=== PATIENT | male | born 1950 | race Caucasian/White ===

== ENCOUNTER 2024-02-24 08:48 | Outpatient (OUT) | payer MEDICARE, SELFPAY ==
--- NOTE | 2024-02-24 09:02 | ECG_ITS ---
[facility] Test Date: 2024-02-24 Pat Name: Alexis Machado Department: Room: - Gender: Male [employer] Commissioner: : 1950 Requested By: LAKEISHA HARDING Order Number: [id number] Reading MD: ALFONZO BIRD Measurements Intervals [place] Rate: 53 P: 33 SD: 182 QRS: -16 QRSD: 105 T: -1 QT: 404 QTc: 380 Interpretive Statements SINUS BRADYCARDIA Non-Specific T wave inversion in III No previous ECG available for comparison Electronically Signed On 02-25-2024 5:23:28 EDT by ALFONZO BIRD
--- NOTE | 2024-02-24 09:42 | P.GSHP_ITS ---
History of Present Illness History of Present Illness Chief complaint: BPH With Obstruction, Hematuria Narrative: Patient presents for preadmission testing. The patient states he has a history of urinary retention, he does urinate on his own, but has incomplete bladder emptying and he is self catheterizing twice a day. He states he does not have any dysuria, hematuria, abdominal pain, nausea, vomiting, fever, or any other complaints. Review of Systems ROS Narrative REVIEW OF SYSTEMS: Negative except as stated in HPI, ten or more systems reviewed. Constitutional: No fever, chills, weakness ENT: No sore throat or epistaxis Cardiovascular: No edema, chest pain, palpitations, or activity intolerance Respiratory: No shortness of breath, cough, or wheezing Musculoskeletal: No joint pain or swelling Gastrointestinal: No abdominal pain, constipation, diarrhea, or vomiting Genitourinary: No dysuria or hematuria Neurological: No numbness, tingling, weakness, or headache Psychiatric: No mood changes PFSH [facility] Medical History (Updated 02/24/24 @ 09:41 by Barbara Quiñonez NP) Self-catheterizes urinary bladder ?Z78.9 - Other specified health status (ICD-10) Leg cramp ?R25.2 - Cramp and spasm (ICD-10) Back pain ?M54.9 - Dorsalgia, unspecified (ICD-10) Arthritis ?M19.90 - Unspecified osteoarthritis, unspecified site (ICD-10) COVID-19 ?U07.1 - COVID-19 (ICD-10) Sleep apnea ?G47.30 - Sleep apnea, unspecified (ICD-10) Seasonal allergies ?J30.2 - Other seasonal allergic rhinitis (ICD-10) Heartburn ?R12 - Heartburn (ICD-10) Hypertension ?I10 - Essential (primary) hypertension (ICD-10) 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 ?S68.119A - Complete traumatic metacarpophalangeal amputation of unspecified finger, initial encounter (ICD-10) Abnormal TRUS (transrectal ultrasound), prostate ?R93.89 - Abnormal findings on diagnostic imaging of other specified body structures (ICD-10) Nocturia ?R35.1 - Nocturia (ICD-10) Elevated PSA ?R97.20 - Elevated prostate specific antigen [PSA] (ICD-10) Urinary retention ?R33.9 - Retention of urine, unspecified (ICD-10) BPH with obstruction/lower urinary tract symptoms ?N40.1 - Benign prostatic hyperplasia with lower urinary tract symptoms (ICD- 10) ?N13.8 - Other obstructive and reflux uropathy (ICD-10) Surgical History (Updated 02/24/24 @ 09:24 by Barbara Quiñonez NP) History of colonoscopy ?Z98.890 - Other specified postprocedural states (ICD-10) History of shoulder replacement ?Z96.619 - Presence of unspecified artificial shoulder joint (ICD-10) History of spinal surgery ?Z98.890 - Other specified postprocedural states (ICD-10) H/O hand surgery ?Z98.890 - Other specified postprocedural states (ICD-10) H/O total ankle replacement ?Z96.669 - Presence of unspecified artificial ankle joint (ICD-10) Family History (Updated 02/24/24 @ 09:24 by Barbara Quiñonez NP) Other Family history of hypertension Family history of stroke Social History (Updated 02/24/24 @ 09:17 by Barbara Quiñonez NP) Within the past year, how often did you have a drink containing alcohol: 4 or more times a week Within the past year, how many standard drinks containing alcohol did you have on a typical day: 1 or 2 Total score: 0 Score interpretation: A score less than 4 is consistent with normal alcohol consumption. Smoking status: Never smoker Non-prescribed substance use: denies use Previous occupational history: Retired -[employer] Highest level of school completed/degree received: high school graduate Meds Home Medications and Allergies Home Medications ?Medication ?Instructions ?Recorded ?Confirmed ?Type albuterol sulfate 90 mcg/actuation 2 inh inhalation Q4H PRN shortness 02/24/24 02/24/24 History aerosol inhaler of breath or wheezing dutasteride 0.5 mg capsule 0.5 mg PO DAILY 02/24/24 02/24/24 History fluticasone propionate 50 2 spray intranasal Q12H 02/24/24 02/24/24 History mcg/actuation nasal spray,suspension nebivolol 5 mg tablet 5 mg PO DAILY 02/24/24 02/24/24 History sulfamethoxazole 800 1 tab PO DAILY 02/24/24 02/24/24 History mg-trimethoprim 160 mg tablet Allergies Allergy/AdvReac Type Severity Reaction Status Date / Time No Known Drug Allergies Allergy Verified 02/24/24 09:14 Exam Narrative Exam Narrative: Constitutional: Awake, alert, comfortable, well-appearing, nontoxic, interactive, vital signs as charted Head: Normocephalic, atraumatic Neck: Supple, normal appearance, normal range of motion, no meningeal signs, no lymphadenopathy Respiratory: No respiratory distress, breath sounds clear Cardiovascular: Regular rate and rhythm, strong and regular heart tones Abdomen: Nontender, normal bowel sounds, soft, no CVA tenderness Musculoskeletal: Normal gait, no swelling or edema Skin: No rashes or induration, no lesions, only visible skin inspected Neuro: No neurological deficits, normal sensation Psychiatric: Oriented ?3, normal affect Assessment and Plan Assessment and Plan (1) Self-catheterizes urinary bladder: (2) Nocturia: (3) Elevated PSA: (4) Urinary retention: (5) BPH with obstruction/lower urinary tract symptoms: Plan Cystoscopy, TURP scheduled with Dr. Murphy March 07, 2024.
[2024-02-24 10:29] LABS: Anion Gap 15.7; BUN Creatinine Ratio 13.3; Calcium 8.8 mg/dL (8.5-10.1); Carbon Dioxide 23.6 mmol/L (21.0-32.0); Chloride 104 mmol/L (98-107); Estimated GFR (African America >60 (>=60); Estimated GFR (Non-African Ame >60 (>=60); Glucose 96 mg/dL (74-106); Potassium 4.3 mmol/L (3.5-5.1); Sodium 139 mmol/L (136-145)
[2024-02-24 10:59] LABS: Basophils Percent Auto 0.5 % (0.2-2.0); Eosinophils Absolute Auto 0.1 10^3/uL (0.0-0.7); Eosinophils Percent Auto 1.1 % (0.9-7.0); Hematocrit 42.9 % (42.0-54.0); Hemoglobin 14.1 g/dL (14.0-18.0); Immature Granulocytes Abs Auto 0.02 10^3/uL (0.00-0.03); Immature Granulocytes Pct Auto 0.3 % (0.0-0.5); Lymphocytes Absolute Auto 1.1 10^3/uL (1.2-3.8); Lymphocytes Percent Auto 14.7 % (20.5-60.0); Mean Corpuscular HGB Conc 32.9 g/dL (29.9-35.2); Mean Corpuscular Hemoglobin 29.3 pg (25.9-34.0); Mean Platelet Volume 9.8 fL (9.5-13.5); Monocytes Absolute Auto 0.9 10^3/uL (0.3-0.8); Monocytes Percent Auto 12.3 % (1.7-12.0); Neutrophils Absolute Auto 5.2 10^3/uL (1.4-6.5); Neutrophils Percent Auto 71.1 % (43.0-75.0); Platelet Count 266 10^3/uL (150-450); Red Blood Count 4.82 10^6/uL (4.70-6.10); Red Cell Distribution Width 14.7 % (11.0-15.0); White Blood Count 7.3 10^3/uL (4.0-11.0)
[2024-02-24 11:16] LABS: INR 1.03; Partial Thromboplastin Time 28.9 sec (22.3-36.2); Prothrombin Time 10.9 sec (9.0-11.6)
== END 2024-02-24 08:49 | disposition home or self-care (01) ==
LOC: PST 08:52
PROVIDERS: PCP Family Medicine; Visit Provider Urology
DX: Z01.810 Encounter for preprocedural cardiovascular examination (principal); Z01.812 Encounter for preprocedural laboratory examination; Z01.818 Encounter for other preprocedural examination; N40.1 Benign prostatic hyperplasia with lower urinary tract symptoms
CPT/HCPCS: 80048; 85025; 85610; 85730; 93005; G0463

== ENCOUNTER 2024-03-07 10:13 | Day surgery (SDC) | payer MEDICARE, SELFPAY ==
[2024-02-24 09:38] VITALS: BP 137/79; PULSE 56; TEMP 36.4; O2SAT 98; BMI 29.0
[2024-03-07] VITALS (13 sets, daily range): BP systolic 89–141; BP diastolic 50–85; PULSE 51–61; TEMP 35.7–36.6; O2SAT 95–100; BMI 28.1; BMI 30.7
[2024-03-07] MEDS: LACTATED RINGER'S SOLUTION 1,000 ML 50 ML IV (11:04)
[2024-03-07] MEDS: LEVOFLOXACIN IN DEXTROSE 5 % 500 MG/100 ML PIGGYBACK 100 MG IV (13:57)
--- NOTE | 2024-03-07 16:39 | P.URON_ITS ---
Urology Surgery Operative Note Operative Note Procedure Date: 03/07/24 Time Out Performed: yes Pre-op Diagnosis: BPH with LUTS refractory to meds. Post-op Diagnosis: same as pre-op Procedures performed: 1. Cystoscopy. 2. Transurethral resection of the prostate. Anesthesia: General-LMA Primary Surgeon: Taj Murphy Complications: None Estimated blood loss (mL): 30 Findings: Large trilobar obstruction of the prostate. Specimens: Prostate chips Drains: 24 [place] three-way coud? Bojorquez in the bladder taped to traction and CBI Indications for Procedures: This gentleman has a weak stream and high postvoid residuals. Urodynamically and endoscopically he is obstructed. He is doing clean intermittent cath twice daily. He is strongly desirous for TURP. We have gone over all of the risk for the procedure. Some of these include bleeding, infection, anesthesia, retrograde ejaculation, urinary incontinence both temporary and permanent, erect ile dysfunction, persistent urinary dysfunction and possible need for further procedures just to name a few. Detailed description of Procedure: The patient was brought to the operating room and placed on the operating room table in the supine position. SCDs were placed on the lower extremities and turned on and functioning during the entire case. Timeout was done by all parties in the room. We all agreed upon the patient's identification and the planned procedures for this patient. Genn. anesthesia was then administered. The patient was then repositioned into the modified dorsal lithotomy position. All pressure points were satisfactorily padded. Genitalia were sterilely prepped and draped in usual fashion. I started by passing a 26 [place] Olympus resectoscope with a standard bipolar loop electrode per urethra and into the bladder. He had a very large median lobe which protruded anteriorly and into the bladder. The ureteral orifices were tucked under the median lobe. I marked them with the loop electrode. The left ureter was in a Hutch diverticulum. I started on the median lobe and uniformly resected this down to the bladder neck level. I then resected posteriorly to the Veru. I kept in mind that he may still require clean intermittent cath and so a very nice smooth channel posteriorly has been created to facilitate this. I then started on the left lateral lobe. Again, this was capacious. As I resected I unroofed purulence pockets. There was a dramatic amount of tissue. Intermittent coagulation with the vaporization loop had to be done to maintain hemostasis. I resected for an hour and a half straight. This was dramatic and requires a modifier. The Ilich was used several times to get all of the chips out of the bladder. These were all sent for permanent sections. The right lateral lobe was resected similarly. It was also very capacious. The anterior tissue was actually very capacious. Once this was all resected I then brought the scope back to the apex. The apex protruded distally to the Ina. This was tightly coapting and had to be resected. Once I resected all of this now his channel was wide open. Again I had to use the vaporization intermittently and the button electrode to maintain hemostasis. Once all of the chips were out of the bladder. Once all the bleeding was stopped. With the scope at the Veru the prostatic urethra and bladder neck were now wide open. The scope was then removed. I then placed a 24 [place] three-way coud? Bojorquez catheter in the bladder. It was irrigated several times with a catheter tip [place] syringe to verify placement. 30 cc of fluid was placed in the balloon. It was taped to traction and CBI was started. It irrigated to a light red color. He was then transferred to a [facility] heart bed and wheeled to PACU in stable condition.
[2024-03-07] MEDS: LACTATED RINGER'S SOLUTION 1,000 ML 75 ML IV (18:00)
[2024-03-07] MEDS: SOLIFENACIN SUCCINATE 10 MG TABLET PO (18:00)
[2024-03-07] MEDS: CEFAZOLIN SODIUM/DEXTROSE,ISO 1 GM/50 ML IV.SOLN IV (18:01)
[2024-03-07] MEDS: SODIUM CHLORIDE IRRIG SOLUTION 3,000 ML 3000 ML IRR ×6 (18:35→23:18)
[2024-03-07] MEDS: FLUTICASONE PROPIONATE 50 MCG NASAL SPRAY 2 SPRAY NS (21:22)
[2024-03-07] MEDS: HYDROCODONE/ACET 5-325 MG TABLET 1 TAB PO (21:54)
[2024-03-08] VITALS: BP 101/61; PULSE 60; O2SAT 95
[2024-03-08] MEDS: CEFAZOLIN SODIUM/DEXTROSE,ISO 1 GM/50 ML IV.SOLN IV (00:51)
[2024-03-08] MEDS: SODIUM CHLORIDE IRRIG SOLUTION 3,000 ML 3000 ML IRR ×2 (00:51→03:10)
--- NOTE | 2024-03-08 03:58 | PC.NURSE ---
Patients urine continues to be watermelon pink in color.
[2024-03-08 04:00] VITALS: BP 118/78; PULSE 65; TEMP 36.8; O2SAT 97
--- NOTE | 2024-03-08 05:06 | PC.NURSE ---
Weaning CBI fluids at this time. Urine darker red in color
--- NOTE | 2024-03-08 06:21 | PC.NURSE ---
Patient tolerated ambulation well. Urine had small amount of clots. No pain reported
[2024-03-08 08:33] VITALS: BP 120/78; PULSE 71; TEMP 36.5; O2SAT 95
[2024-03-08] MEDS: SOLIFENACIN SUCCINATE 10 MG TABLET PO (08:39)
[2024-03-08] MEDS: NEBIVOLOL HCL 5 MG TABLET PO (08:39)
[2024-03-08] MEDS: FLUTICASONE PROPIONATE 50 MCG NASAL SPRAY 2 SPRAY NS (08:40)
--- NOTE | 2024-03-08 17:29 | NUTR.NU ---
Pt was admitted 03/07/24 for SDS and discharged to home 03/08/24. He tolerated regular diet w/100% PO intake. He does not require therapeutic diet or nutritional supplement at this time.
== END 2024-03-08 10:30 | disposition home or self-care (01) ==
LOC: SURGOUT 16:35 → MS 17:14
PROVIDERS: PCP Family Medicine; Visit Provider Urology
PROC: (CPT 52601; principal; 2024-03-07 11:45)
DX: N40.1 Benign prostatic hyperplasia with lower urinary tract symptoms (principal); R33.9 Retention of urine, unspecified; R97.20 Elevated prostate specific antigen [PSA]; Z80.42 Family history of malignant neoplasm of prostate; G47.33 Obstructive sleep apnea (adult) (pediatric); I10 Essential (primary) hypertension; K21.9 Gastro-esophageal reflux disease without esophagitis
CPT/HCPCS: 52601; 36415; 88305; J0690; J1100; J2250; J2371; J2405; J2704; J3010